=== PATIENT | male | born 1995 | race Caucasian/White ===

== ENCOUNTER 2018-10-04 14:10 | Outpatient (CLI) | payer OTHER ==
--- NOTE | 2018-10-04 16:46 | CT ---
CT FACIAL BONES: 10/04/18 COMPARISON: None. HISTORY: Trauma, pain. TECHNIQUE: Axial CT imaging at 0.5 mm intervals through the facial bones with coronal and sagittal reformatted i maging. FINDINGS: The frontal sinus on the right is completely opacified with secretions demonstrating areas of interna l density. There is partial opacification of the left frontal sinus. There is opacification of the an terior ethmoid air cells on the right, also demonstrating subtle internal increased density within th e secretions. Bilateral ethmoid air cells otherwise unremarkable. Maxillary sinuses, sphenoid sinuses , and imaged mastoid air cells unremarkable. There is a subtle area of cortical irregularity involving the anterior aspect of the nasal bone on th e right, breast seen on thin section axial image 350, suggesting an age indeterminate subtle nasal zac ne fracture. There is mild concavity involving the zygomatic arch anteriorly both on the right and on the left whi ch could represent old fracture deformities or could be congenital variant. The pterygoid plates appe ar unremarkable. There is no fracture of the orbital floor or medial orbital wall on either side. Neither temporomandi bular joint is dislocated. There is no maxillary fracture noted. There is a fracture involving angle of the mandible on the left, extending into the posterior superio r aspect of the coronoid process with mild displacement. There is a subtle nondisplaced right sided m andibular fracture as well, located at the angle of the mandible. The imaged portions of the cervical spine appear unremarkable. Imaged portions of the brain parenchym a unremarkable. IMPRESSION: 1. Acute bilateral mandibular fractures. 2. Paranasal sinus occlusion, including areas of internal increased density which may signify ch ronic and/or fungal sinusitis or polyposis. 3. Acute bilateral mandibular fractures. Discussed with Dr. Tipton at 3:15 p.m., 10/04/18. Code CR POS: OFF
== END 2018-10-04 14:11 | disposition home or self-care (01) ==
LOC: BICCT 14:10
PROVIDERS: ATTEND Family Medicine
DX: S09.93XA Unspecified injury of face, initial encounter (principal); S02.609A Fracture of mandible, unspecified, initial encounter for closed fracture; J34.89 Other specified disorders of nose and nasal sinuses
CPT/HCPCS: 70486